=== PATIENT | female | born 1990 | race Caucasian/White ===

== ENCOUNTER 2016-11-16 10:04 | Emergency (ER) | payer OTHER ==
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
[2016-11-16 10:26] VITALS: BP 104/68; PULSE 82; RESP 14; O2SAT 98
== END 2016-11-16 10:38 | disposition home or self-care (01) ==
LOC: SED 10:04
DX: Z77.21 Contact with and (suspected) exposure to potentially hazardous body fluids (principal); X58.XXXA Exposure to other specified factors, initial encounter; Y93.89 Activity, other specified; Y99.0 Civilian activity done for income or pay; Y92.89 Other specified places as the place of occurrence of the external cause
CPT/HCPCS: 36415; 86706; 87340; 99283; G0433